=== PATIENT | male | born 1975 | race Caucasian/White ===

== ENCOUNTER 2019-10-26 09:16 | Emergency (ER) | payer SELFPAY ==
[2019-10-26 10:02] VITALS: BP 115/79; PULSE 78; RESP 16; TEMP 36.9; O2SAT 95; BMI 25.7
[2019-10-26 10:15] VITALS: BP 111/73; PULSE 73; RESP 20; O2SAT 95
--- NOTE | 2019-10-26 11:00 | HMH.EDDENT ---
ED Disposition Clinical Impression: Dental abscess Disposition: Home, Self-Care Condition on Discharge: Good Instructions: Tooth Abscess Prescriptions: clindamycin HCL [Clindamycin HCl 300mg Cap] 300 mg PO Q6 10 Days #40 cap Transmission Status: Pending to [facility] #[id number] Referrals: Gerard Morrissey [Primary Care Provider] - - Critical Care Critical Care Time: No Attestation: On 10/26/19, the high probability of a clinically significant, sudden or life threatening deterioration of the following system(s) required my full and direct attention, intervention and personal management. The time I documented below is in addition to time spent performing reported procedures but includes the following listed in this critical care notation. Medical Decision Making - Medical Records Medical records reviewed: Yes: I reviewed the patient's medical records. - Patric Inquiry Pt receiving controlled substance: No Vital Signs: 10/26/19 10:02 10/26/19 10:15 Temperature 98.5 F Temperature Source Oral Pulse Rate [Right Brachial] 78 73 Respiratory Rate 16 20 Blood Pressure [Right Arm] 115/79 111/73 Blood Pressure Mean [Right Arm] 91 85 Blood Pressure Source [Right Arm] Automatic Cuff Automatic Cuff Blood Pressure Position [Right Arm] Sitting Sitting 02 Sat by Pulse Oximetry 95 95 Oxygen Delivery Method Room Air Dental HPI - General Chief complaint: Dental/Oral Stated complaint: bleeding from right ear Time Seen by Provider: 10/26/19 11:00 Mode of Arrival: Ambulatory Source of Information: Patient Limitations: No Limitations Description of Symptoms (Recalled from ER Triage Doc. by RN): PT advises his right ear has been bleeding since last night. Denies any trauma or injury. Advises he has some bad teeth and has had some for a while and has a headache and thinks it is all related to his teeth - History of Present Illness MD Complaint: tooth pain Onset (ago): day(s) Duration: constant Severity: moderate Severity scale (1-10): 3 Relieving factors: nothing Exacerbating factors: nothing Context: history of dental caries Associated symptoms: gum swelling Treatment prior to arrival: none - Related Data Previous Rx's Medication Instructions Recorded clindamycin HCL [Clindamycin HCl 300 mg PO Q6 10 Days #40 cap 10/26/19 300mg Cap] Allergies Allergy/AdvReac Type Severity Reaction Status Date / Time Tetanus Vaccines and Toxoid Allergy Verified 01/20/18 23:18 [facility] History - Hepatitis A Screen Drug use history?: No High risk sexual behaviors?: No History of sexually transmitted infection?: No Currently employed?: No Childcare worker?: No Do you have indoor plumbing?: Yes Do you have electricity?: Yes Attestation statement:: This patient has been screened for Hepatitis A risk factors. Medical History: Denies:: Cancer, Diabetes Mellitus Type 1, Diabetes Mellitus Type 2, MRSA Amputation: No - Social History Smoking Status: Current every day smoker Tobacco Type: cigarettes # Packs/Day (cigarettes): 1 Alcohol Intake: current Alcohol Intake Frequency:: a few times a week Occupational Status: other Housing: house ROS Obtained: Yes All systems reviewed & no additional complaints - Constitutional Constitutional: Reports system reviewed and no additional complaints, except as docu - Eyes Eyes: Reports system reviewed and no additional complaints, except as docu - ENT Ears, Nose, Mouth, and Throat: Reports system reviewed and no additional complaints, except as docu - Cardiovascular Cardiovascular: Reports system reviewed and no additional complaints, except as docu - Respiratory Respiratory: Yes system reviewed and no additional complaints, except as docu - Gastrointestinal Gastrointestingal: Reports: system reviewed and no additional complaints, except as docu - Genitourinary Male Genitourinary: Reports system reviewed and no additional complaints, except a
[2019-10-26 11:19] VITALS: BP 111/73; PULSE 73; RESP 20; TEMP 36.9; O2SAT 95
== END 2019-10-26 11:19 | disposition home or self-care (01) ==
PROVIDERS: Emergency Provider Family Medicine; PCP Pediatrics
DX: K04.7 Periapical abscess without sinus (principal); K02.9 Dental caries, unspecified; Z88.7 Allergy status to serum and vaccine
CPT/HCPCS: 99282

== ENCOUNTER 2021-01-15 22:23 | Inpatient (IN) | payer OTHER, SELFPAY ==
[2021-01-15 22:25] VITALS: BP 113/85; PULSE 84; RESP 16; TEMP 36.8; O2SAT 93; BMI 17.2
[2021-01-15 22:50] LABS: Coronavirus 19, PCR Not Detected (NotDetected); Influenza A, PCR Not Detected (NotDetected); Influenza B, PCR Not Detected (NotDetected)
[2021-01-15 22:50] LABS: Microscopic, Urine URINE MICROSCOPIC (MICROSCOPIC)
[2021-01-15 22:51] LABS: Appearance,Urine SL CLOUDY (Clear); Bilirubin,Urine Negative (Negative); Blood, Urine TRACE-I (Negative); Color,Urine YELLOW (Yellow); Glucose,Urine (UA) Negative (Negative); Ketones,Urine Negative (Negative); Leukocyte Esterase,Urine Negative (Negative); Nitrate,Urine Negative (Negative); Protein,Urine Negative (Negative); Urobilinogen,Urine 0.2 EU/dl (0.2)
[2021-01-15 23:01] LABS: RBC,Urine Occasional #/hpf (0-3); Squamous Epithelial Cell,Urine Occasional #/hpf (0-5)
[2021-01-15 23:02] LABS: Basophils # 0.1 K/mm3 (0-0.2); Basophils % 1.2 % (0.1-2.0); Eosinophils # 0.1 K/mm3 (0.0-0.4); Eosinophils % 2.1 % (0.1-12.0); Hematocrit 46.3 % (42.0-52.0); Lymphocytes # 2.8 K/mm3 (0.7-4.5); Lymphocytes % 54.9 % (10-50); Mean Corpuscular HGB Conc 34.7 g/dL (31.8-35.4); Mean Corpuscular Hemoglobin 34.1 pg (27.0-31.2); Mean Corpuscular Volume 98.3 fl (80-94); Mean Platelet Volume 7.3 fl (7.4-10.4); Monocytes # 0.3 K/mm3 (0.1-1.0); Neutrophils # 1.8 K/mm3 (1.8-7.8); Neutrophils % 35.8 % (37.0-80.0); Platelet Count 240 K/mm3 (142-424); Red Blood Count 4.71 M/mm3 (4.60-6.20); Red Cell Distribution Width 14.4 % (11.5-17.5); White Blood Count 5.1 K/mm3 (4.8-10.8)
[2021-01-15 23:04] LABS: MANUAL DIFFERENTIAL MANUAL DIFFERENTIAL (MANUAL DIFF)
[2021-01-15 23:06] LABS: Chloride 103 mmol/L (98-107)
--- NOTE | 2021-01-15 23:06 | ECG_ITS ---
APPROVED REPORT Exam: Resting ECG HR:76 bpm ECG Measurements Heart Rate 76 AXES ND 200 P 80 QRSd 106 QRS 83 QT 394 T 63 QTc 443 Conclusion Normal sinus rhythm Normal ECG Electronically signed by : Willy Almanza MD 01/17/2021 17:37:17
[2021-01-15 23:07] LABS: Potassium 3.4 mmoL/L (3.5-5.1); Sodium 146 mmol/L (136-145)
[2021-01-15 23:09] LABS: Alanine Aminotransferase 48 U/L (12-78); Aspartate Amino Transferase 138 U/L (17-59); Creatinine Clearance Estimated 120 mL/min (50-200); Estimated Glomerular Filt Rate 146 ml/min (>60); GFR (African American) 176 ML/MIN (>60)
--- NOTE | 2021-01-15 23:09 | HMH.EDGENADL ---
ED Disposition Clinical Impression: Alcoholism Alcoholic pancreatitis Qualifiers: Chronicity: acute Acute pancreatitis complication: no infection or necrosis Qualified Code(s): K85.20 - Alcohol induced acute pancreatitis without necrosis or infection Alcohol intoxication Qualifiers: Complication of substance-induced condition: with unspecified complication Qualified Code(s): F10.929 - Alcohol use, unspecified with intoxication, unspecified Disposition: Admitted as Observation Condition on Discharge: Fair Referrals: Provider,Referral, [Primary Care Provider] - - Critical Care Critical Care Time: No Attestation: On 01/15/21, the high probability of a clinically significant, sudden or life threatening deterioration of the following system(s) required my full and direct attention, intervention and personal management. The time I documented below is in addition to time spent performing reported procedures but includes the following listed in this critical care notation. Medical Decision Making - Patric Inquiry Pt receiving controlled substance: No Vital Signs: 01/15/21 22:25 Temperature 98.2 F Temperature Source Oral Pulse Rate [Right] 84 Respiratory Rate 16 Blood Pressure [Right Arm] 113/85 Blood Pressure Mean [Right Arm] 94 02 Sat by Pulse Oximetry 93 L Oxygen Delivery Method Room Air - Lab Data Lab Results 01/15/21 22:40: SARS-CoV-2 (PCR) Not detected, Influenza A Untype (PCR) Not detected, Influenza Type B (PCR) Not detected 01/15/21 22:45: Urine Color Yellow, Urine Appearance Sl cloudy, Urine pH 6.0, Ur Specific [place] 1.010, Urine Protein Negative, Urine Glucose (UA) Negative, Urine Ketones Negative, Urine Blood Trace-i, Urine Nitrate Negative, Urine Bilirubin Negative, Urine Urobilinogen 0.2, Ur Leukocyte Esterase Negative, Urine RBC Occasional, Urine WBC None, Ur Squamous Epith Cells Occasional, Urine Bacteria None 01/15/21 22:45: Urine Opiates Screen Negative, Urine Methadone Screen Negative, Ur Barbituates Screen Negative, Ur Phencyclidine Scrn Negative, Ur Amphetamines Screen Negative, U Benzodiazepines Scrn Negative, Urine Cocaine Screen Negative, U Marijuana (THC) Screen Negative 01/15/21 22:52: WBC 5.1, RBC 4.71, Hgb 16.0, Hct 46.3, MCV 98.3 H, MCH 34.1 H, MCHC 34.7, RDW 14.4, Plt Count 240, MPV 7.3 L, Neut % (Auto) 35.8 L, Lymph % (Auto) 54.9 H, [place] % (Auto) 6.0, Eos % (Auto) 2.1, Baso % (Auto) 1.2, Neut # (Auto) 1.8, Lymph # (Auto) 2.8, [place] # (Auto) 0.3, Eos # (Auto) 0.1, Baso # (Auto) 0.1, Total Counted 100, Neutrophils % (Manual) 33 L, Lymphocytes % (Manual) 66 H, Monocytes % (Manual) 1 L, Platelet Estimate Normal, RBC Morphology Normal 01/15/21 22:52: Sodium 146 H, Potassium 3.4 L, Chloride 103, Carbon Dioxide 28, Anion Gap 18.4 H, BUN < 2 L, Creatinine 0.60 L, Estimated Creat Clear 120, Estimated GFR 146, Est GFR ( Amer) 176, Glucose 97, Calcium 8.4, Total Bilirubin 0.2, AST 138 H, ALT 48, Alkaline Phosphatase 151 H, Total Protein 7.2, Albumin 3.8, Globulin 3.4 H, Albumin/Globulin Ratio 1.1 01/15/21 22:52: Plasma/Serum Alcohol 490 H 01/15/21 22:52: Troponin I < 0.01 01/15/21 22:52: Lipase 1239 H 01/15/21 22:52: Magnesium 1.6 Result diagrams: 01/15/21 22:52 01/15/21 22:52 Orders (Tests/Meds): ED MEDICATIONS Generic Name Dose Route Start Last Admin Trade Name Freq PRN Reason Stop Dose Admin Multivitamins 10 ml/ Thiamine 1,015 mls @ 150 mls/hr 01/15/21 23:15 01/15/21 23:23 HCl 100 mg/ Magnesium Sulfate IV 01/16/21 06:00 150 mls/hr 2 gm/ Lactated Ringer's .[id number] ERWIN Administration Discontinued Medications Generic Name Dose Route Start Last Admin Trade Name Freq PRN Reason Stop Dose Admin Ondansetron HCl 4 mg 01/15/21 23:06 01/15/21 23:31 Ondansetron 4mg/2ml Vial IV 01/15/21 23:07 4 mg ONCE ONE Administration ORDERS Category Date Time Status Diarrhea 6-11 Panel, Cdiff PCR Stat Lab 01/15/21 23:10 Ordered Troponin I Q3H Lab 01/16/21 02:15 [place]
[2021-01-15 23:10] LABS: Albumin Level 3.8 g/dl (3.5-5.0); Albumin/Globulin Ratio 1.1 (1.1-1.8); Alkaline Phosphatase 151 U/L (38-126); Anion Gap 18.4 mEq/L (5-15); Bilirubin,Total 0.2 mg/dl (0.2-1.3); Blood Urea Nitrogen < 2 mg/dl (9-20); Calcium 8.4 mg/dl (8.4-10.2); Carbon Dioxide 28 mmol/L (22.0-30.0); Globulin 3.4 g/dL (1.3-3.2); Glucose 97 mg/dl (74-100); Total Protein,Serum 7.2 g/dl (6.3-8.2)
[2021-01-15 23:22] LABS: Ethyl Alcohol 490 mg/dl (0-10)
[2021-01-15 23:24] LABS: Magnesium 1.6 mg/dl (1.6-2.3)
[2021-01-15 23:28] LABS: Barbiturates Screen,Urine Negative ng/ml (<200); Benzodiazepines Screen,Urine Negative ng/ml (<200)
[2021-01-15 23:29] LABS: Amphetamine/Metha Screen,Urine Negative ng/ml (<1000)
[2021-01-15 23:30] LABS: Cannabinoid Screen,Urine Negative ng/ml (<50); Cocaine Screen,Urine Negative ng/ml (<300)
[2021-01-15 23:31] LABS: Methadone Screen,Urine Negative ng/ml (<300); Opiate Screen,Urine Negative ng/ml (<300)
[2021-01-15 23:32] LABS: Phencyclidine Screen,Urine Negative ng/ml (<25)
[2021-01-15 23:33] LABS: Lymphocytes % 66 % (10-50); Monocytes % 1 % (2-9); Neutrophils % 33 % (42-76); Platelet Estimate Normal; RBC Morphology Normal; Total Cells Counted 100
[2021-01-15 23:35] LABS: Lipase 1239 U/L (23-300)
[2021-01-15 23:37] LABS: Troponin I < 0.01 ng/ml (0.00-0.034)
--- NOTE | 2021-01-16 00:25 | XR_ITS ---
PROCEDURE INFORMATION: Exam: XR Chest Exam date and time: 01/16/2021 12:25 AM Age: 45 years old Clinical indication: Cough and other: Weakness TECHNIQUE: Imaging protocol: XR of the chest. Views: 2 views. COMPARISON: CR XR CHEST 2V 02/24/2019 8:59 AM FINDINGS: Lungs: No focal consolidation. Pleural spaces: No pleural effusion. No pneumothorax. Heart/Mediastinum: Unremarkable cardiomediastinal silhouette. Bones/joints: No acute osseous findings. Metallic hardware in the right clavicle. IMPRESSION: No focal consolidation.
--- NOTE | 2021-01-16 00:28 | CT_ITS ---
PROCEDURE INFORMATION: Exam: CT Abdomen And Pelvis With Contrast Exam date and time: 01/16/2021 12:28 AM Age: 45 years old Clinical indication: Nausea and vomiting; Additional info: Abdo pain, back pain, vomiting TECHNIQUE: Imaging protocol: Computed tomography of the abdomen and pelvis with contrast. Radiation optimization: All CT scans at this facility use at least one of these dose optimization techniques: automated exposure control; mA and/or kV adjustment per patient size (includes targeted exams where dose is matched to clinical indication); or iterative reconstruction. Contrast material: ISOVUE; Contrast volume: 75 ml; Contrast route: IV; COMPARISON: CR XR CHEST 2V 02/24/2019 8:59 AM FINDINGS: Lungs: No bibasilar consolidation. Liver: Hepatic steatosis. Gallbladder and bile ducts: No calcified stones. No ductal dilation. Pancreas: No ductal dilation. No peripancreatic inflammatory changes. Spleen: Unremarkable. Adrenal glands: No mass. Kidneys and ureters: Small cyst in the right kidney. No hydronephrosis. Stomach and bowel: Nonobstructive bowel gas pattern. Appendix: No evidence of appendicitis. Intraperitoneal space: No free air. No ascites. Vasculature: Vascular calcifications. Lymph nodes: No enlarged lymph nodes. Urinary bladder: Relatively mild diffuse urinary bladder wall thickening, cystitis is possible. Reproductive: Unremarkable as visualized. Bones/joints: No suspicious osseous lesion. No acute fracture. Scattered degenerative changes. Soft tissues: No suspicious mass. IMPRESSION: 1. Relatively mild diffuse urinary bladder wall thickening, cystitis is possible. 2. Nonobstructive bowel gas pattern. COMMENTS: Consistent with the [employer]'s Incidental Findings Committee white paper (J Am Taj Radiol 2018): Any incidental renal lesion less than 1 cm or classified as too small to characterize, or any incidental cystic renal lesion characterized as simple-appearing, is likely benign. No follow-up imaging is recommended for these lesions per consensus recommendations based on imaging criteria.
[2021-01-16 02:27] VITALS: BP 119/73; PULSE 66; RESP 17; TEMP 36.4; O2SAT 97; BMI 25.1
[2021-01-16 02:28] VITALS: BP 121/74; PULSE 81; RESP 16; TEMP 36.8; O2SAT 94
[2021-01-16 02:45] LABS: Activated Partial Thrombo Time 27.1 seconds (22.8-30.6); Prothrombin Time 9.8 seconds (10.1-12.5)
[2021-01-16 02:47] LABS: INR 0.82 (0.9-1.1)
--- NOTE | 2021-01-16 02:49 | PC.NURSE ---
patient up to floor via wheelchair
[2021-01-16 02:58] LABS: Phosphorous 4.1 mg/dl (2.5-4.5)
[2021-01-16 02:59] LABS: Troponin I < 0.01 ng/ml (0.00-0.034)
[2021-01-16 03:00] LABS: Lipase 919 U/L (23-300)
--- NOTE | 2021-01-16 07:18 | P.CONPHA_ITS ---
[facility] Pharmacy VTE Monitoring - Patient Demographics Admission date: 01/15/21 Report Date: 01/16/21 Time: 07:18 Allergies/Adverse Reactions: Patient Allergies Tetanus Vaccines and Toxoid Allergy (Verified 01/20/18 23:18) Height: 1.8 m Weight: 81.647 kg Patient Problems: Current Active Problems Alcoholic pancreatitis (Acute) Alcohol intoxication (Acute) Alcoholism (Acute) - VTE Risk Labs: VTE Related Lab Results Hgb 16.0 g/dL (14.1-18.0) 01/15/21 22:52 Hct 46.3 % (42.0-52.0) 01/15/21 22:52 Plt Count 240 K/mm3 (142-424) 01/15/21 22:52 PT 9.8 seconds (10.1-12.5) L 01/15/21 22:52 INR 0.82 (0.9-1.1) L 01/15/21 22:52 APTT 27.1 seconds (22.8-30.6) 01/15/21 22:52 BUN < 2 mg/dl (9-20) L 01/15/21 22:52 Creatinine 0.60 mg/dl (0.66-1.25) L 01/15/21 22:52 Estimated Creat Clear 120 mL/min (50-200) 01/15/21 22:52 Was VTE Risk Assessment Performed: Yes VTE Score: 1 VTE Risk Level: Very Low Risk - Prophylaxis VTE Prophylaxis Ordered?: Yes Types of VTE Prophylaxis: TEDS Knee High Location of Applied Device: Bilateral Lower Extremeties
[2021-01-16 08:00] VITALS: BP 125/86; PULSE 94; RESP 16; TEMP 37.1; O2SAT 96
--- NOTE | 2021-01-16 09:10 | SW/DCPLANNER ---
Addendum entered by Yenni Maldonado 01/19/21 09:43: I have updated Sofi with [facility] regarding this patient and faxed updates. Sofi is currently speaking with this patient via phone and understands that patient is medically stable for discharge today. Addendum entered by Yenni Maldonado 01/17/21 13:24: I have notified Sofi with [facility] that this patient is not medically stable for discharge today. CM will follow up with [facility] tomorrow. Addendum entered by Yenni Maldonado 01/17/21 09:18: This patient is now agreeable to discharge to [facility]. Patient stated that he spoke with his Radio Assembler yesterday and stated that was his only option. I spoke with Sofi at [facility] and faxed patient information. I will follow up with Sofi once patient information is reviewed. [facility] phone [phone] fax [phone] Original Note: I spoke with this patient this morning during rounds regarding alcohol detox programs. During rounds patient expressed an interest in discharging to a 30 day program and stated that his Radio Assembler has contacted him and he will have to do a program. After rounds I spoke with patient and he stated that he is going home at time of discharge but would be interested in contact information to [facility] in [place]. I have printed out information for [facility] for this patient. Patient will discharge home this afternoon.
--- NOTE | 2021-01-16 13:54 | HMH.HPDC ---
General - General Admission date:: 01/16/21 Discharge date: 01/16/21 *Admission Date: 01/15/21 *Chief complaint: abd pain *History of present illness: this patient presented to the ed -ates he has not felt well for 2 weeks. He says his kidneys are hurting, he has been vomiting, bad diarrhea, he has infraumbilical midline pain, he is coughing and thinks he has pneumonia, he thinks he is dehydrated. Admits to daily alcohol intake, a pint today. Denies drug use. He is a smoker. He does not have a primary care provider. He is on no prescription medications. pt was found to have elevated etoh level and acute assoc pancreatitis but neg ct abd/pelvis - pt with dec po intake and was admitted for ivf and meds and bowel rest [facility] History I have reviewed the patient's past medical history: Yes Medical History: Reports:: Heart Murmur Denies:: Cancer, Diabetes Mellitus Type 1, Diabetes Mellitus Type 2, Internal Pacemaker, MRSA *Have you ever received a pneumonia vaccine?: No *Have you received a flu vaccine this season?: No Laterality Cases: Right: Arthroscopy Shoulder Other Surgeries: No: Pacemaker Amputation: No Fractures: No - *Social History Last grade of school completed: 11th or 12th Smoking Status: Current every day smoker Tobacco Type: cigarettes # Packs/Day (cigarettes): 1 Alcohol Intake: current Alcohol Intake Frequency:: 3 or more drinks per day *Occupational Status:: unemployed Housing: house Household Members: significant other, children *Travel in the last 8 weeks: None Family Hx:: No significant family history Review of Systems - Review of Systems Review of systems:: pertinent systems reviewed and negative unless documented below - Constitutional Denies fever(s) - Eyes Denies change in vision - ENT Denies sore throat - *Cardiovascular Denies chest pain - *Respiratory Denies cough - *Gastrointestinal Reports abdominal pain, Reports nausea, Reports vomiting, Denies black, tarry stools - *Genitourinary Denies blood in urine - *Musculoskeletal Denies joint pain, Denies joint swelling - Integumentary/Breasts Denies rash - *Neurologic Denies dizziness, Denies headache(s), Denies seizure-like activity - Psychiatric Reports anxiety Exam Vital signs and Labs for Last 24 Hours: Temp Pulse Resp BP Pulse Ox 98.8 F 94 H 16 125/86 96 01/16/21 08:00 01/16/21 08:00 01/16/21 08:00 01/16/21 08:00 01/16/21 08:00 Laboratory Results - last 24 hr 01/15/21 22:40: SARS-CoV-2 (PCR) Not detected, Influenza A Untype (PCR) Not detected, Influenza Type B (PCR) Not detected 01/15/21 22:45: Urine Color Yellow, Urine Appearance Sl cloudy, Urine pH 6.0, Ur Specific [place] 1.010, Urine Protein Negative, Urine Glucose (UA) Negative, Urine Ketones Negative, Urine Blood Trace-i, Urine Nitrate Negative, Urine Bilirubin Negative, Urine Urobilinogen 0.2, Ur Leukocyte Esterase Negative, Urine RBC Occasional, Urine WBC None, Ur Squamous Epith Cells Occasional, Urine Bacteria None 01/15/21 22:45: Urine Opiates Screen Negative, Urine Methadone Screen Negative, Ur Barbituates Screen Negative, Ur Phencyclidine Scrn Negative, Ur Amphetamines Screen Negative, U Benzodiazepines Scrn Negative, Urine Cocaine Screen Negative, U Marijuana (THC) Screen Negative 01/15/21 22:52: WBC 5.1, RBC 4.71, Hgb 16.0, Hct 46.3, MCV 98.3 H, MCH 34.1 H, MCHC 34.7, RDW 14.4, Plt Count 240, MPV 7.3 L, Neut % (Auto) 35.8 L, Lymph % (Auto) 54.9 H, [place] % (Auto) 6.0, Eos % (Auto) 2.1, Baso % (Auto) 1.2, Neut # (Auto) 1.8, Lymph # (Auto) 2.8, [place] # (Auto) 0.3, Eos # (Auto) 0.1, Baso # (Auto) 0.1, Total Counted 100, Neutrophils % (Manual) 33 L, Lymphocytes % (Manual) 66 H, Monocytes % (Manual) 1 L, Platelet Estimate Normal, RBC Morphology Normal 01/15/21 22:52: Sodium 146 H, Potassium 3.4 L, Chloride 103, Carbon Dioxide 28, Anion Gap 18.4 H, BUN < 2 L, Creatinine 0.60 L, Estimated Creat Clear 120, Estimated GFR 146, Est GFR ( Amer) 176, Gl
--- NOTE | 2021-01-16 15:51 | HMH.PHAINT ---
MEDICATION DISCHARGE COUNSELING COMPLETED. NO QUESTIONS ENDORSED.
[2021-01-16 16:00] VITALS: BP 148/92; PULSE 85; RESP 22; TEMP 36.6; O2SAT 98
[2021-01-16 16:38] LABS: Basophils # 0.1 K/mm3 (0-0.2); Basophils % 1.5 % (0.1-2.0); Eosinophils % 0.8 % (0.1-12.0); Hematocrit 40.9 % (42.0-52.0); Lymphocytes # 1.1 K/mm3 (0.7-4.5); Lymphocytes % 24.9 % (10-50); Mean Corpuscular HGB Conc 33.4 g/dL (31.8-35.4); Mean Corpuscular Hemoglobin 32.8 pg (27.0-31.2); Mean Corpuscular Volume 98.3 fl (80-94); Mean Platelet Volume 8.5 fl (7.4-10.4); Monocytes # 0.4 K/mm3 (0.1-1.0); Monocytes % 8.8 % (1.7-9.3); Neutrophils # 2.8 K/mm3 (1.8-7.8); Platelet Count 245 K/mm3 (142-424); Red Blood Count 4.16 M/mm3 (4.60-6.20); Red Cell Distribution Width 14.7 % (11.5-17.5); White Blood Count 4.4 K/mm3 (4.8-10.8)
[2021-01-16 16:47] LABS: Chloride 96 mmol/L (98-107)
[2021-01-16 16:48] LABS: Sodium 136 mmol/L (136-145)
[2021-01-16 16:50] LABS: Alanine Aminotransferase 45 U/L (12-78); Alkaline Phosphatase 146 U/L (38-126); Aspartate Amino Transferase 123 U/L (17-59); Bilirubin,Total 0.4 mg/dl (0.2-1.3); Carbon Dioxide 26 mmol/L (22.0-30.0); Creatinine Clearance Estimated 215 mL/min (50-200); Estimated Glomerular Filt Rate 180 ml/min (>60); GFR (African American) 218 ML/MIN (>60)
[2021-01-16 16:51] LABS: Albumin Level 3.6 g/dl (3.5-5.0); Albumin/Globulin Ratio 1.2 (1.1-1.8); Calcium 8.1 mg/dl (8.4-10.2); Glucose 109 mg/dl (74-100); Total Protein,Serum 6.6 g/dl (6.3-8.2)
[2021-01-16 17:43] LABS: Blood Urea Nitrogen < 2 mg/dl (9-20)
[2021-01-16 17:44] LABS: Lipase 662 U/L (23-300)
[2021-01-16 20:00] VITALS: BP 160/102; PULSE 95; RESP 16; TEMP 36.6; O2SAT 97
--- NOTE | 2021-01-16 20:45 | PC.NURSE ---
This RN called Dr. Martin senior telecommunications engineer in [place] to pt's critical K and lipase. Dr. Martin ordered 2 runs of K 20 meq and NS @ 125. He also reviewed meds for the etoh protocol. Pt this afternoon started to become very nauseated and anxious and in pain. Meds given per jun. Dr. Putnam made aware this shift earlier of pt's worsening status and did cancel pt's d/c. CB in reach and family has been at bedside.
[2021-01-16 20:54] LABS: Hemoglobin 13.6 g/dL (14.1-18.0)
[2021-01-17] VITALS: BP 128/88
[2021-01-17 04:00] VITALS: BP 131/85; PULSE 81; RESP 16; TEMP 36.9; O2SAT 97
--- NOTE | 2021-01-17 05:00 | PC.NURSE ---
PT HAS SLEPT OFF AND ON TONIGHT,CWIA SCORE OF 7 THIS MORNING,ZOFRAN 4 MG IVP GIVEN FOR A LITTLE NAUSEA,MORPHINE HAS BEEN GIVEN X2,PT HAD A COUPLE RUNS OF KCL TONIGHT.V/S STABLEE WILL CONTINE TO MONITOR
[2021-01-17 05:52] VITALS: BMI 21.6
[2021-01-17 07:11] LABS: Basophils % 0.3 % (0.1-2.0); Eosinophils # 0.1 K/mm3 (0.0-0.4); Eosinophils % 0.9 % (0.1-12.0); Hematocrit 37.8 % (42.0-52.0); Hemoglobin 12.7 g/dL (14.1-18.0); Lymphocytes % 18.2 % (10-50); Mean Corpuscular HGB Conc 33.5 g/dL (31.8-35.4); Mean Corpuscular Hemoglobin 32.9 pg (27.0-31.2); Mean Corpuscular Volume 98.3 fl (80-94); Mean Platelet Volume 8.5 fl (7.4-10.4); Monocytes # 0.2 K/mm3 (0.1-1.0); Monocytes % 3.4 % (1.7-9.3); Neutrophils # 4.3 K/mm3 (1.8-7.8); Neutrophils % 77.2 % (37.0-80.0); Platelet Count 201 K/mm3 (142-424); Red Blood Count 3.84 M/mm3 (4.60-6.20); Red Cell Distribution Width 14.6 % (11.5-17.5); White Blood Count 5.6 K/mm3 (4.8-10.8)
[2021-01-17 07:13] LABS: Anion Gap 7.3 mEq/L (5-15); Blood Urea Nitrogen 3 mg/dl (9-20); Calcium 7.5 mg/dl (8.4-10.2); Carbon Dioxide 30 mmol/L (22.0-30.0); Chloride 97 mmol/L (98-107); Creatinine Clearance Estimated 185 mL/min (50-200); Estimated Glomerular Filt Rate 180 ml/min (>60); GFR (African American) 218 ML/MIN (>60); Glucose 82 mg/dl (74-100); Potassium 3.3 mmoL/L (3.5-5.1); Sodium 131 mmol/L (136-145)
[2021-01-17 07:57] LABS: Lipase 671 U/L (23-300)
[2021-01-17 08:00] VITALS: BP 120/74; PULSE 84; RESP 16; TEMP 37.2; O2SAT 95
--- NOTE | 2021-01-17 09:36 | PC.NURSE ---
0830: Dr. Putnam notified of Lipase of 671.
[2021-01-17 12:08] LABS: Adenovirus F 40/41, stool Not Detected (NotDetected); Astrovirus Not Detected (NotDetected); Campylobacter Not Detected (NotDetected); Cryptosporidium Not Detected (NotDetected); Cyclospora Cayetanesis Not Detected (NotDetected); Entamoeba histolytica Not Detected (NotDetected); Enteroaggregative E coli Not Detected (NotDetected); Enteropathogenic E coli Not Detected (NotDetected); Enterotoxigenic E coli Not Detected (NotDetected); Giardia lamblia Not Detected (NotDetected); Norovirus Not Detected (NotDetected); Plesimonas Shigalloides, PCR Not Detected (NotDetected); Rotavirus A Not Detected (NotDetected); Salmonella, PCR Not Detected (NotDetected); Sapovirus Not Detected (NotDetected); Shiga-like toxin E coli Not Detected (NotDetected); Shigella Enterovasive E coli Not Detected (NotDetected); Vibrio Cholerae Not Detected (NotDetected); Vibrio, PCR Not Detected (NotDetected); Yersinia Entercolitica, PCR Not Detected (NotDetected)
[2021-01-17 12:37] LABS: Lipase 888 U/L (23-300)
[2021-01-17 15:05] LABS: Clostridium Difficile A/B, PCR Detected (NotDetected)
--- NOTE | 2021-01-17 15:20 | PC.NURSE ---
Telephone report to Dr. Barakat regarding pt. elevated Lipase (888) and diarrhea panel result of C.Diff. New orders for IV Flagyl and to make pt. NPO.
[2021-01-17 16:00] VITALS: BP 165/92; PULSE 81; RESP 18; TEMP 36.9; O2SAT 98
[2021-01-17 20:00] VITALS: BP 135/84; PULSE 80; RESP 18; TEMP 37.1; O2SAT 96
--- NOTE | 2021-01-17 20:40 | HMH.ACPN2 ---
Internal Medicine - PN: Subj *Date: 01/17/21 *Time: 08:40 Interval history: 45-year-old male patient sitting up in bed, girlfriend in room. Patient was to be discharged yesterday after labs were drawn he did have a low potassium which was replaced and an elevated lipase, normal saline was started at 125 an hour. This morning he reports multiple bowel movements and emesis during the night, reports abdomen is still slightly tender. Discussed possible discharge home today with him and then to start her Taney, he is agreeable to this we will draw lipase at noon and advance diet to see how tolerated at lunch. Exam Vital signs and Labs for Last 24 Hours: Temp Pulse Resp BP Pulse Ox 98.4 F 81 18 165/92 H 98 01/17/21 16:00 01/17/21 16:00 01/17/21 16:00 01/17/21 16:00 01/17/21 16:00 Laboratory Results - last 24 hr 01/15/21 11:57: Stl Aeromonas (PCR) Not detected, Stl C. cayetanensis PCR Not detected, Stool Rotavirus (PCR) Not detected, Stl Adenov F 40/41 PCR Not detected, Stool Astrovirus (PCR) Not detected, Stool Campylobacter PCR Not detected, Stl C.difficile Tox PCR Detected A, Stool Cryptosporidium PCR Not detected, Stl E.coli Shiga Tox PCR Not detected, Stool E coli O157 PCR Not detected, Stl Enterotoxigenic E PCR Not detected, Stool EPEC (PCR) Not detected, Stool EAEC (PCR) Not detected, Stl E. histolytica PCR Not detected, Stool Giardia Lamblia PCR Not detected, Stool Salmonella PCR Not detected, Stool Sapovirus (PCR) Not detected, Stl P. shigelloides PCR Not detected, Stl Shigella/EIEC PCR Not detected, St Y.enterocolitica PCR Not detected, Stool Vibrio (PCR) Not detected, Stl Vibrio cholerae PCR Not detected, Stl Norovirus GI/GII PCR Not detected 01/16/21 16:30: Hgb 13.6 L D 01/17/21 06:24: WBC 5.6 D, RBC 3.84 L, Hgb 12.7 L, Hct 37.8 L, MCV 98.3 H, MCH 32.9 H, MCHC 33.5, RDW 14.6, Plt Count 201, MPV 8.5, Neut % (Auto) 77.2, Lymph % (Auto) 18.2, [place] % (Auto) 3.4, Eos % (Auto) 0.9, Baso % (Auto) 0.3, Neut # (Auto) 4.3, Lymph # (Auto) 1.0, [place] # (Auto) 0.2, Eos # (Auto) 0.1, Baso # (Auto) 0.0 01/17/21 06:24: Sodium 131 L, Potassium 3.3 L, Chloride 97 L, Carbon Dioxide 30, Anion Gap 7.3, BUN 3 L D, Creatinine 0.50 L, Estimated Creat Clear 185, Estimated GFR 180, Est GFR ( Amer) 218, Glucose 82 D, Calcium 7.5 L, Lipase 671 H 01/17/21 12:16: Lipase 888 H I & O for Last 24 hours: Intake & Output 01/14/21 01/15/21 01/16/21 01/17/21 23:59 23:59 23:59 23:59 Intake Total 720 / 720 240 / 240 Output Total 975 / 975 Balance 720 / 320 -735 / -735 Weight 120 lb 180 lb 154 lb 4 oz - Constitutional no acute distress, chronically ill appearing - *Routine HEENT Exam Head: Present: normocephalic Eye: Present: EOMI ENT: Present: mucous membranes moist - *Routine Neck Exam Present: trachea midline. Absent: tracheal deviation - *Routine Respiratory Exam Present: decreased breath sounds. Absent: accessory muscle use - *Routine Cardiovascular Exam Present: RRR - *Routine Abdominal Exam Present: soft, normoactive bowel sounds, tenderness. Absent: rigid - *Routine Extremities Exam Present: full ROM, pulses intact. Absent: cyanosis, clubbing - *Routine Skin Exam Present: intact, dry, warm. Absent: cyanosis, erythema - *Routine Neurological Exam Present: alert, oriented X3. Absent: motor deficit - Routine Psychiatric Exam Present: normal affect, normal thought process. Absent: auditory hallucinations, visual hallucinations Assessment and Plan (1) Tobacco use Status: Acute Category: Social Hx Code(s): Z72.0 - Tobacco use (2) Alcohol intoxication Status: Acute Qualifiers: Complication of substance-induced condition: with unspecified complication Qualified Code(s): F10.929 - Alcohol use, unspecified with intoxication, unspecified Category: Medical Code(s): F10.929 - Alcohol use, unspecified with intoxication, unspecified (3) Alcoholic pancreatitis Status: Acute Qual
--- NOTE | 2021-01-18 03:54 | PC.NURSE ---
A&OX4. PT TOLERATING RA WELL. HAS HAD NO C/O THUS FAR THIS SHIFT. CIWAS BEING DONE PER PROTOCOL. HAVE NOT BEEN ABOVE 12 THIS SHIFT. PT HAS BEEN UP MAJORITY OF SHIFT. VSS WILL CONTINUE TO MONITOR.
[2021-01-18 04:00] VITALS: BP 143/99; PULSE 79; RESP 18; TEMP 37.2; O2SAT 97
[2021-01-18 06:54] VITALS: BMI 20.9
--- NOTE | 2021-01-18 06:55 | PC.NURSE ---
ASSIGNMENT ACCEPTED UNDER DURESS.
[2021-01-18 06:59] LABS: Basophils % 0.6 % (0.1-2.0); Eosinophils # 0.1 K/mm3 (0.0-0.4); Eosinophils % 1.6 % (0.1-12.0); Hematocrit 41.8 % (42.0-52.0); Hemoglobin 13.7 g/dL (14.1-18.0); Lymphocytes # 1.6 K/mm3 (0.7-4.5); Lymphocytes % 27.3 % (10-50); Mean Corpuscular HGB Conc 32.7 g/dL (31.8-35.4); Mean Corpuscular Volume 100.9 fl (80-94); Mean Platelet Volume 9.4 fl (7.4-10.4); Monocytes # 0.4 K/mm3 (0.1-1.0); Monocytes % 7.3 % (1.7-9.3); Neutrophils # 3.6 K/mm3 (1.8-7.8); Neutrophils % 63.2 % (37.0-80.0); Platelet Count 222 K/mm3 (142-424); Red Blood Count 4.14 M/mm3 (4.60-6.20); Red Cell Distribution Width 14.6 % (11.5-17.5); White Blood Count 5.7 K/mm3 (4.8-10.8)
[2021-01-18 07:09] LABS: Anion Gap 17.2 mEq/L (5-15); Blood Urea Nitrogen 3 mg/dl (9-20); Calcium 8.5 mg/dl (8.4-10.2); Carbon Dioxide 24 mmol/L (22.0-30.0); Chloride 101 mmol/L (98-107); Creatinine Clearance Estimated 149 mL/min (50-200); Estimated Glomerular Filt Rate 146 ml/min (>60); GFR (African American) 176 ML/MIN (>60); Glucose 74 mg/dl (74-100); Potassium 3.2 mmoL/L (3.5-5.1); Sodium 139 mmol/L (136-145)
[2021-01-18 07:57] LABS: Lipase 634 U/L (23-300)
[2021-01-18 08:00] VITALS: BP 152/97; PULSE 92; RESP 22; TEMP 36.9; O2SAT 98
--- NOTE | 2021-01-18 09:35 | CT_ITS ---
PROCEDURE: CT ABDOMEN PELVIS WO CON CLINICAL INDICATION: Abd Pain COMPARISON: CT ABDPELW CT ABD PELVIS W/ CONTRAST from 12/16/[address] ABDOMEN PELVIS W CON from 01/16/2021 TECHNIQUE: Axial images obtained with sagittal and coronal reformats. All CT scans at the facility use one or more dose reduction, viz: automated exposure control, ma/kV adjustment per patient size (including targeted exams where dose is matched to indication, i.e. head), or iterative reconstruction technique. FINDINGS: LOWER THORAX: There is a diffuse micronodular pattern involving the lung bases which is similar compared to 01/16/2021. No pleural effusion ABDOMEN & PELVIS: There is mild fatty liver infiltration. No focal liver lesion apparent. The spleen and adrenal glands are unremarkable. No obvious pancreatic mass. No evidence of pancreatitis. The gallbladder is contracted. Unremarkable appearing adrenal glands. No renal or ureteral calculi. There is a slightly hyperdense nodule projecting off the lower pole of the right kidney anteriorly at 11 mm. This nodule is hyperdense measuring 47 Hounsfield units making this an indeterminate nodule. There are few scattered small retroperitoneal lymph nodes. No intestinal obstruction or free air. No evidence of appendicitis. There is mild gaseous distention of the colon. Multiple unopacified bowel loops in the abdomen or pelvis which could obscure or mimic pathology. If symptoms persist, consider repeat exam with IV and oral contrast. There is mild thickening of the urinary bladder wall. No pelvic mass or abnormal fluid collection. Prostate is slightly prominent at 4.3 cm. There is grade 1 spondylitic spondylolisthesis of L5 on S1. IMPRESSION: Miliary opacities in the mid and lower lung zones bilaterally. This can be seen with infection such as tuberculosis, fungal infection, viral pneumonitis, miliary metastasis, sarcoidosis and pneumoconiosis. Please correlate with clinical parameters. Indeterminate 11 mm hyperdense nodule of the right kidney. Initially ultrasound may be of further value to determine if this is cystic or solid if ultrasound is inconclusive then MRI may be needed. Dictated by: Abdulaziz Hannon MD 01/18/2021 14:14 Abdulaziz Hannon MD in [facility] 01/18/2021 14:14
--- NOTE | 2021-01-18 09:36 | HMH.ACPN2 ---
Internal Medicine - PN: Subj *Date: 01/18/21 *Time: 15:14 Interval history: 45-year-old male patient up walking in room, girlfriend and mother in room also. He reports he is feeling better he did have one loose bowel movement last night about 1 AM. Denies any nausea reports tolerating liquids without any difficulty. Lipase this morning 634 we will recheck at noon and CT abdomen pelvis again. Exam Vital signs and Labs for Last 24 Hours: Temp Pulse Resp BP Pulse Ox 98.4 F 92 H 22 152/97 H 98 01/18/21 08:00 01/18/21 08:00 01/18/21 08:00 01/18/21 08:00 01/18/21 08:00 Laboratory Results - last 24 hr 01/15/21 11:57: Stl Aeromonas (PCR) Not detected, Stl C. cayetanensis PCR Not detected, Stool Rotavirus (PCR) Not detected, Stl Adenov F 40/41 PCR Not detected, Stool Astrovirus (PCR) Not detected, Stool Campylobacter PCR Not detected, Stl C.difficile Tox PCR Detected A, Stool Cryptosporidium PCR Not detected, Stl E.coli Shiga Tox PCR Not detected, Stool E coli O157 PCR Not detected, Stl Enterotoxigenic E PCR Not detected, Stool EPEC (PCR) Not detected, Stool EAEC (PCR) Not detected, Stl E. histolytica PCR Not detected, Stool Giardia Lamblia PCR Not detected, Stool Salmonella PCR Not detected, Stool Sapovirus (PCR) Not detected, Stl P. shigelloides PCR Not detected, Stl Shigella/EIEC PCR Not detected, St Y.enterocolitica PCR Not detected, Stool Vibrio (PCR) Not detected, Stl Vibrio cholerae PCR Not detected, Stl Norovirus GI/GII PCR Not detected 01/17/21 12:16: Lipase 888 H 01/18/21 06:41: WBC 5.7, RBC 4.14 L, Hgb 13.7 L, Hct 41.8 L, MCV 100.9 H, MCH 33.0 H, MCHC 32.7, RDW 14.6, Plt Count 222, MPV 9.4, Neut % (Auto) 63.2, Lymph % (Auto) 27.3, Grainger % (Auto) 7.3, Eos % (Auto) 1.6, Baso % (Auto) 0.6, Neut # (Auto) 3.6, Lymph # (Auto) 1.6, Grainger # (Auto) 0.4, Eos # (Auto) 0.1, Baso # (Auto) 0.0 01/18/21 06:41: Sodium 139, Potassium 3.2 L, Chloride 101, Carbon Dioxide 24, Anion Gap 17.2 H, BUN 3 L, Creatinine 0.60 L, Estimated Creat Clear 149, Estimated GFR 146, Est GFR ( Amer) 176, Glucose 74, Calcium 8.5, Lipase 634 H I & O for Last 24 hours: Intake & Output 01/15/21 01/16/21 01/17/21 01/18/21 23:59 23:59 23:59 23:59 Intake Total 720 / 720 240 / 240 120 / 120 Output Total 975 / 975 Balance 720 / 320 -735 / -735 120 / 120 Weight 120 lb 180 lb 154 lb 4 oz 149 lb 4 oz - Constitutional no acute distress, chronically ill appearing - *Routine HEENT Exam Head: Present: normocephalic Eye: Present: EOMI ENT: Present: mucous membranes moist - *Routine Neck Exam Present: full ROM, trachea midline. Absent: tracheal deviation - *Routine Respiratory Exam Present: CTA bilaterally. Absent: accessory muscle use - *Routine Cardiovascular Exam Present: RRR - *Routine Abdominal Exam Present: soft, normoactive bowel sounds, tenderness. Absent: firm - *Routine Extremities Exam Present: full ROM, pulses intact. Absent: cyanosis, clubbing, edema - *Routine Skin Exam Present: intact, dry, warm. Absent: cyanosis, erythema - *Routine Neurological Exam Present: alert, oriented X3. Absent: altered mental status - Routine Psychiatric Exam Present: normal affect, normal thought process. Absent: auditory hallucinations Assessment and Plan (1) Tobacco use Status: Acute Category: Social Hx Code(s): Z72.0 - Tobacco use (2) Alcohol intoxication Status: Acute Qualifiers: Complication of substance-induced condition: with unspecified complication Qualified Code(s): F10.929 - Alcohol use, unspecified with intoxication, unspecified Category: Medical Code(s): F10.929 - Alcohol use, unspecified with intoxication, unspecified (3) Alcoholic pancreatitis Status: Acute Qualifiers: Chronicity: acute Acute pancreatitis complication: no infection or necrosis Qualified Code(s): K85.20 - Alcohol induced acute pancreatitis without necrosis or infection Category: Medical Code(s): K85.20 - [place]
[2021-01-18 13:10] LABS: Lipase 720 U/L (23-300)
[2021-01-18 16:00] VITALS: BP 148/96; PULSE 102; RESP 22; TEMP 36.9; O2SAT 96
--- NOTE | 2021-01-18 18:50 | PC.NURSE ---
VSS, pt ambulating to and from bathroom independently, pt tolerating liquids and solid food at this time, informed pt that per MD Garcia as long as can tolerate diet and am labs look okay pt can be discharged in am.
[2021-01-18 20:00] VITALS: BP 154/94; PULSE 105; RESP 22; TEMP 37.2; O2SAT 97
[2021-01-18 23:30] LABS: Lipase 768 U/L (23-300)
--- NOTE | 2021-01-18 23:35 | PC.NURSE ---
critical lipase reported to Doc RN
--- NOTE | 2021-01-18 23:36 | PC.NURSE ---
CRITICAL LIPASE REPORTED TO MD PORTILLO. NAME AND CONFIRMED WITH LAB.
[2021-01-19] VITALS: BP 136/78; PULSE 100; RESP 20; TEMP 37.2; O2SAT 97
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
[2021-01-19 04:00] VITALS: BP 144/75; PULSE 78; RESP 20; TEMP 36.6; O2SAT 98
[2021-01-19 05:19] VITALS: BMI 20.7
[2021-01-19 07:19] LABS: Basophils % 0.8 % (0.1-2.0); Eosinophils # 0.1 K/mm3 (0.0-0.4); Eosinophils % 2.4 % (0.1-12.0); Hematocrit 37.8 % (42.0-52.0); Lymphocytes # 1.6 K/mm3 (0.7-4.5); Lymphocytes % 32.1 % (10-50); Mean Corpuscular HGB Conc 32.5 g/dL (31.8-35.4); Mean Corpuscular Hemoglobin 32.4 pg (27.0-31.2); Mean Corpuscular Volume 99.7 fl (80-94); Mean Platelet Volume 8.7 fl (7.4-10.4); Monocytes # 0.4 K/mm3 (0.1-1.0); Monocytes % 8.9 % (1.7-9.3); Neutrophils # 2.8 K/mm3 (1.8-7.8); Neutrophils % 55.8 % (37.0-80.0); Platelet Count 179 K/mm3 (142-424); Red Blood Count 3.79 M/mm3 (4.60-6.20)
[2021-01-19 07:40] LABS: Anion Gap 11.6 mEq/L (5-15); Blood Urea Nitrogen 2 mg/dl (9-20); Calcium 8.1 mg/dl (8.4-10.2); Carbon Dioxide 26 mmol/L (22.0-30.0); Chloride 100 mmol/L (98-107); Creatinine Clearance Estimated 177 mL/min (50-200); Estimated Glomerular Filt Rate 180 ml/min (>60); GFR (African American) 218 ML/MIN (>60); Glucose 122 mg/dl (74-100); Sodium 135 mmol/L (136-145)
[2021-01-19 07:49] LABS: Lipase 765 U/L (23-300); Potassium 2.6 mmoL/L (3.5-5.1)
[2021-01-19 07:52] LABS: Hemoglobin 12.3 g/dL (14.1-18.0)
[2021-01-19 08:00] VITALS: BP 141/94; PULSE 100; RESP 16; TEMP 36.6; O2SAT 98
--- NOTE | 2021-01-19 13:44 | HMH.DCSUM ---
General - General Admission date:: 01/16/21 Discharge date: 01/19/21 HPI HPI: this patient presented to the ed -ates he has not felt well for 2 weeks. He says his kidneys are hurting, he has been vomiting, bad diarrhea, he has infraumbilical midline pain, he is coughing and thinks he has pneumonia, he thinks he is dehydrated. Admits to daily alcohol intake, a pint today. Denies drug use. He is a smoker. He does not have a primary care provider. He is on no prescription medications. pt was found to have elevated etoh level and acute assoc pancreatitis but neg ct abd/pelvis - pt with dec po intake and was admitted for ivf and meds and bowel rest Hospital Course Hospital Course: this patient presented to the ed -ates he has not felt well for 2 weeks. He says his kidneys are hurting, he has been vomiting, bad diarrhea, he has infraumbilical midline pain, he is coughing and thinks he has pneumonia, he thinks he is dehydrated. Admits to daily alcohol intake, a pint today. Denies drug use. He is a smoker. He does not have a primary care provider. He is on no prescription medications. pt was found to have elevated etoh level and acute assoc pancreatitis but neg ct abd/pelvis - pt with dec po intake and was admitted for ivf and meds and bowel rest 01/16/21 CXR: FINDINGS: Lungs: No focal consolidation. Pleural spaces: No pleural effusion. No pneumothorax. Heart/Mediastinum: Unremarkable cardiomediastinal silhouette. Bones/joints: No acute osseous findings. Metallic hardware in the right clavicle. IMPRESSION: No focal consolidation. Electronically signed by Keith Calvert MD 01/16/21 Abd/Pelvis CT: FINDINGS: Lungs: No bibasilar consolidation. Liver: Hepatic steatosis. Gallbladder and bile ducts: No calcified stones. No ductal dilation. Pancreas: No ductal dilation. No peripancreatic inflammatory changes. Spleen: Unremarkable. Adrenal glands: No mass. Kidneys and ureters: Small cyst in the right kidney. No hydronephrosis. Stomach and bowel: Nonobstructive bowel gas pattern. Appendix: No evidence of appendicitis. Intraperitoneal space: No free air. No ascites. Vasculature: Vascular calcifications. Lymph nodes: No enlarged lymph nodes. Urinary bladder: Relatively mild diffuse urinary bladder wall thickening, cystitis is possible. Reproductive: Unremarkable as visualized. Bones/joints: No suspicious osseous lesion. No acute fracture. Scattered degenerative changes. Soft tissues: No suspicious mass. IMPRESSION: 1. Relatively mild diffuse urinary bladder wall thickening, cystitis is possible. 2. Nonobstructive bowel gas pattern. Electronically signed by Keith Calvert MD 01/18/21 Abd /Pelvis CT: FINDINGS: LOWER THORAX: There is a diffuse micronodular pattern involving the lung bases which is similar compared to 01/16/2021. No pleural effusion ABDOMEN & PELVIS: There is mild fatty liver infiltration. No focal liver lesion apparent. The spleen and adrenal glands are unremarkable. No obvious pancreatic mass. No evidence of pancreatitis. The gallbladder is contracted. Unremarkable appearing adrenal glands. No renal or ureteral calculi. There is a slightly hyperdense nodule projecting off the lower pole of the right kidney anteriorly at 11 mm. This nodule is hyperdense measuring 47 Hounsfield units making this an indeterminate nodule. There are few scattered small retroperitoneal lymph nodes. No intestinal obstruction or free air. No evidence of appendicitis. There is mild gaseous distention of the colon. Multiple unopacified bowel loops in the abdomen or pelvis which could obscure or mimic pathology. If symptoms persist, consider repeat exam with IV and oral contrast. There is mild thickening of the urinary bladder wall. No pelvic mass or abnormal fluid collection. Prostate is slightly prominent at 4.3 cm. There is grade 1 spondylitic spondylolisthesis of
[2021-01-19 14:23] LABS: Chloride 98 mmol/L (98-107); Potassium 3.7 mmoL/L (3.5-5.1); Sodium 137 mmol/L (136-145)
[2021-01-19 14:26] LABS: Anion Gap 15.7 mEq/L (5-15); Blood Urea Nitrogen 3 mg/dl (9-20); Calcium 8.5 mg/dl (8.4-10.2); Carbon Dioxide 27 mmol/L (22.0-30.0); Creatinine Clearance Estimated 177 mL/min (50-200); Estimated Glomerular Filt Rate 180 ml/min (>60); GFR (African American) 218 ML/MIN (>60); Glucose 155 mg/dl (74-100)
--- NOTE | 2021-01-19 14:50 | PC.NURSE ---
pt Chris with third and final run of potassium IV almost complete, will finish and remove IV, report called to [facility] where pt will be admitted upon discharge, pt's family will transport pt, discharge instructions complete and pt verbalized understanding, medications sent to [facility] and pt and family had no questions pertaining to medications or discharge at this time
== END 2021-01-19 15:25 | disposition home or self-care (01) | DRG 439 ==
LOC: ER 01-16 02:01 → 2ND 01-16 02:41
PROVIDERS: Nurse Practitioner Family; Admitting Provider Emergency Medicine; Emergency Provider Emergency Medicine; Visit Provider Emergency Medicine
DX: A04.72 Enterocolitis due to Clostridium difficile, not specified as recurrent; K85.20 Alcohol induced acute pancreatitis without necrosis or infection; Z20.822 Contact with and (suspected) exposure to COVID-19; F10.229 Alcohol dependence with intoxication, unspecified; F41.9 Anxiety disorder, unspecified; F17.210 Nicotine dependence, cigarettes, uncomplicated
CPT/HCPCS: 36415; 71046; 74176; 74177; 80048; 80053; 80305; 81001; 83690; 83735; 84100; 84484; 85007; 85025; 85610; 85730; 87506; 93005; 96365; 96375; 99284; C9803; J2405; U0003; U0005

== ENCOUNTER → 2021-01-26 13:49 | Outpatient (CLI) | payer OTHER, SELFPAY ==
[2021-01-26 15:15] LABS: Lipase 651 U/L (23-300)
== END ==
PROVIDERS: Visit Provider Family Medicine
DX: K85.20 Alcohol induced acute pancreatitis without necrosis or infection (principal)
CPT/HCPCS: 83690

== ENCOUNTER → 2021-05-11 12:41 | Outpatient (CLI) | payer OTHER, SELFPAY | PROVIDERS: PCP Family Medicine; Visit Provider Nurse Practitioner | DX: U07.1 COVID-19 (principal) | CPT/HCPCS: C9803; U0003; U0005 ==

== ENCOUNTER 2022-01-01 17:46 | Emergency (ER) | payer OTHER, SELFPAY ==
[2022-01-01 17:47] VITALS: BP 129/89; PULSE 92; RESP 16; TEMP 36.4; O2SAT 92; BMI 21.5
--- NOTE | 2022-01-01 18:04 | HMH.EDGENADL ---
Discharge Plan Disposition Patient Disposition: Left Against Medical Advice Condition: Fair Chief Complaint: Abdominal Pain Prescriptions Prescriptions: No Action naltrexone 50 mg tablet 50 mg PO DAILY Qty: 7 0RF Vivitrol 380 mg suspension,extended rel recon 380 mg IM QMONTH Qty: 1 10RF folic acid 1 mg tablet 1 mg PO DAILY Qty: 90 3RF buspirone 5 mg tablet 5 mg PO TID PRN (Reason: anxiety) Qty: 270 3RF Rx Instructions: PO TID for anxiety trazodone 100 mg tablet 100 mg PO DAILY Qty: 30 2RF methylprednisolone [Medrol (Rian)] 4 mg tablets,dose pack See Rx Instructions PO PER PKG DIR Qty: 21 0RF Rx Instructions: PO PER PKG DIR amitriptyline 50 mg tablet 50 mg PO DAILY PRN (Reason: sleep) Qty: 90 3RF pantoprazole 40 mg tablet,delayed release (DR/EC) See Rx Instructions .ROUTE .COMPLEX Qty: 30 2RF Dose Instruction: TAKE 1 TABLET BY MOUTH AT BEDTIME Rx Instructions: TAKE 1 TABLET BY MOUTH AT BEDTIME metaxalone [Skelaxin] 800 mg tablet 800 mg PO TID PRN (Reason: muscle pain) Qty: 90 6RF Referrals Follow up/Referrals: Christiano Barakat MD [Primary Care Provider] - See instructions Clinical Impressions Clinical Impression: Pancreatitis Instructions Patient Instructions: DI for Acute Abdominal Pain, Acute Pancreatitis Print Language Print Language: Lithuanian Discharge ED Provider: Leandro Blankenship General Adult HPI General Chief complaint: Abdominal Pain Stated complaint: Vomiting,fever Time Seen by Provider: 01/01/22 18:05 History of Present Illness HPI narrative: 46-year-old male with past medical history including severe alcohol abuse, alcoholic pancreatitis. He presents with complaint of epigastric pain, nausea, vomiting, diarrhea ongoing for about a week and worsening. Significant other in the room reports he drinks about 30 beers per day. He denies any fevers, but reports recently he has noticed abnormal bruising, has numerous ecchymotic areas over the legs anteriorly and torso without known trauma precipitating these. He denies any bleeding of the gums, epistaxis, denies any known coagulopathy or liver disease. Related Data Previous Rx's Medication Instructions Recorded naltrexone 50 mg tablet 50 mg PO DAILY #7 tabs 01/26/21 naltrexone microspheres 380 mg 380 mg IM QMONTH #1 ea 01/26/21 intramuscular suspension,extended release (Vivitrol) trazodone 100 mg tablet 100 mg PO DAILY #30 tabs 01/31/21 buspirone 5 mg tablet 5 mg PO TID PRN anxiety #270 tabs 02/27/21 folic acid 1 mg tablet 1 mg PO DAILY #90 tabs 02/27/21 pantoprazole 40 mg tablet,delayed See Rx Instructions .Route 03/15/21 release .COMPLEX #30 tabs amitriptyline 50 mg tablet 50 mg PO DAILY PRN sleep #90 tabs 04/03/21 methylprednisolone 4 mg tablets in See Rx Instructions PO PER PKG DIR 04/03/21 a dose pack (Medrol (Rian)) #21 tabs metaxalone 800 mg tablet (Skelaxin) 800 mg PO TID PRN muscle pain #90 06/08/21 tabs Allergies Allergy/AdvReac Type Severity Reaction Status Date / Time Tetanus Vaccines and Toxoid Allergy Verified 04/03/21 11:18 [facility] Social History Smoking Status: Current every day smoker tobacco type: cigarettes packs per day: 1 second hand exposure: Yes alcohol intake: current current occupational status: unemployed Travel in the last 8 weeks: None household members: significant other and children housing: house caffeine: No ROS Obtained: Yes Systems reviewed as appropriate & no additional complaints except as documented Constitutional Constitutional: Reports fatigue Eyes Eyes: Reports system reviewed and no additional complaints, except as documented ENT Ears, Nose, Mouth, and Throat: Reports system reviewed and no additional complaints, except as documented Cardiovascular Cardiovascular: Reports system reviewed and no additional complaints, except as documented Res
[2022-01-01 18:51] LABS: Basophils # 0.1 K/mm3 (0-0.2); Basophils % 0.7 % (0.1-2.0); Eosinophils # 0.1 K/mm3 (0.0-0.4); Eosinophils % 0.8 % (0.1-12.0); Hematocrit 44.9 % (42.0-52.0); Hemoglobin 14.5 g/dL (14.1-18.0); Lymphocytes % 22.8 % (10-50); Mean Corpuscular HGB Conc 32.3 g/dL (31.8-35.4); Mean Corpuscular Hemoglobin 30.7 pg (27.0-31.2); Mean Corpuscular Volume 95.1 fl (80-94); Mean Platelet Volume 7.1 fl (7.4-10.4); Monocytes # 0.6 K/mm3 (0.1-1.0); Monocytes % 6.5 % (1.7-9.3); Neutrophils # 5.9 K/mm3 (1.8-7.8); Neutrophils % 69.1 % (37.0-80.0); Platelet Count 315 K/mm3 (142-424); Red Blood Count 4.72 M/mm3 (4.60-6.20); Red Cell Distribution Width 13.9 % (11.5-17.5); White Blood Count 8.6 K/mm3 (4.8-10.8)
[2022-01-01 18:56] LABS: Alanine Aminotransferase 27 U/L (12-78); Albumin/Globulin Ratio 1.5 (1.1-1.8); Alkaline Phosphatase 77 U/L (38-126); Anion Gap 13.5 mEq/L (5-15); Aspartate Amino Transferase 70 U/L (17-59); Blood Urea Nitrogen 3 mg/dl (9-20); Calcium 8.3 mg/dl (8.4-10.2); Carbon Dioxide 24 mmol/L (22.0-30.0); Chloride 99 mmol/L (98-107); Creatinine Clearance Estimated 135 mL/min (50-200); Estimated Glomerular Filt Rate 121 ml/min (>60); GFR (African American) 147 ML/MIN (>60); Globulin 2.7 g/dL (1.3-3.2); Glucose 138 mg/dl (74-100); Lipase 443 U/L (23-300); Potassium 3.5 mmoL/L (3.5-5.1); Sodium 133 mmol/L (136-145); Total Protein,Serum 6.7 g/dl (6.3-8.2)
[2022-01-01 18:57] LABS: INR 0.85 (0.9-1.1); Prothrombin Time 9.3 seconds (10.1-12.5)
[2022-01-01 18:58] LABS: Bilirubin,Total 0.1 mg/dl (0.2-1.3)
[2022-01-01 19:12] VITALS: BP 118/91; PULSE 83; RESP 18; TEMP 36.6; O2SAT 94
== END 2022-01-01 19:16 | disposition left against medical advice (07) ==
PROVIDERS: Emergency Provider Emergency Medicine; PCP Family Medicine
DX: K85.90 Acute pancreatitis without necrosis or infection, unspecified (principal); Z72.0 Tobacco use
CPT/HCPCS: 80053; 83690; 85025; 85610; 96365; 96375; 99284; J2405

== ENCOUNTER → 2022-01-11 13:12 | Outpatient (CLI) | payer OTHER, SELFPAY ==
--- NOTE | 2022-01-11 13:16 | US_ITS ---
FINAL REPORT CLINICAL HISTORY: .eval area seen on rt kidney COMPARISON: 01/18/2021 FINDINGS: FINDINGS: Sonographic images of the kidneys were obtained. Limited images of the liver are unremarkable. The right kidney measures 10.3 cm in length. There is no evidence of hydronephrosis. There is a 1.4 cm hypoechoic mass which likely represents a cyst. The left kidney measures 12.2 cm in length. There is no evidence of hydronephrosis. No mass is identified. IMPRESSION: Probable right renal cyst. Reviewed, Interpreted and Dictated by Brian Olson III, MD Transcribed by Rehana Gavin Authenticated and [facility]
--- NOTE | 2022-01-11 13:16 | CT_ITS ---
FINAL REPORT TECHNIQUE: Axial CT images of the abdomen were obtained without contrast. Coronal reformatted images were also obtained.This study was performed with techniques to keep radiation doses as low as reasonably achievable (ALARA). Individualized dose reduction techniques using automated exposure control or adjustment of mA and/or kV according to the patient''s size were employed. CLINICAL HISTORY: pancreatitis COMPARISON: 01/18/2021 FINDINGS: The lung bases are clear. The liver has an unremarkable appearance, without evidence of mass. The gallbladder is partially collapsed. There is no evidence of biliary ductal dilatation. The pancreas has an unremarkable, unenhanced appearance. The spleen size is within normal limits. There is no evidence of renal stone or hydronephrosis. There is 11 mm mass in the anterior right kidney which does not appear to be a simple cyst. This measured 10 mm on the previous exam. There is no evidence of adenopathy. No abnormal fluid collection is seen. There is mild wall thickening of the hepatic flexure of the colon which is nonspecific and may represent mild colitis. There are vascular calcifications. There are bilateral pars defects with mild anterolisthesis of L5 on S1. IMPRESSION: Unremarkable, unenhanced appearance to the pancreas. Mild wall thickening of the hepatic flexure of the colon may represent mild colitis. 11 mm mass in the anterior right kidney which does not appear to be a simple cyst. Consider follow-up renal mass protocol CT in 6 months. Reviewed, Interpreted and Dictated by Brian Olson III, MD Transcribed by Rehana Gavin Authenticated and [facility]
== END ==
PROVIDERS: PCP Family Medicine; Visit Provider Family Medicine
DX: K85.90 Acute pancreatitis without necrosis or infection, unspecified (principal); N28.9 Disorder of kidney and ureter, unspecified
CPT/HCPCS: 74150; 76770

== ENCOUNTER → 2022-02-09 16:15 | Outpatient (CLI) | payer OTHER, SELFPAY ==
[2022-02-09 18:47] LABS: Lipase 32 U/L (23-300)
== END ==
PROVIDERS: PCP Family Medicine; Visit Provider Family Medicine
DX: K85.20 Alcohol induced acute pancreatitis without necrosis or infection (principal)
CPT/HCPCS: 83690

== ENCOUNTER → 2022-03-30 16:32 | Outpatient (CLI) | payer OTHER, SELFPAY ==
[2022-03-30 15:31] LABS: Basophils # 0.1 K/mm3 (0-0.2); Basophils % 0.7 % (0.1-2.0); Eosinophils # 0.4 K/mm3 (0.0-0.4); Eosinophils % 4.3 % (0.1-12.0); Hematocrit 44.7 % (42.0-52.0); Lymphocytes # 2.5 K/mm3 (0.7-4.5); Lymphocytes % 27.8 % (10-50); Mean Corpuscular HGB Conc 31.3 g/dL (31.8-35.4); Mean Corpuscular Hemoglobin 30.6 pg (27.0-31.2); Mean Corpuscular Volume 97.5 fl (80-94); Monocytes # 0.6 K/mm3 (0.1-1.0); Monocytes % 7.2 % (1.7-9.3); Neutrophils # 5.3 K/mm3 (1.8-7.8); Platelet Count 413 K/mm3 (142-424); Red Blood Count 4.58 M/mm3 (4.60-6.20); Red Cell Distribution Width 13.5 % (11.5-17.5); White Blood Count 8.8 K/mm3 (4.8-10.8)
[2022-03-30 16:24] LABS: Alanine Aminotransferase 22 U/L (12-78); Albumin Level 4.4 g/dl (3.5-5.0); Albumin/Globulin Ratio 1.8 (1.1-1.8); Alkaline Phosphatase 68 U/L (38-126); Amylase 84 U/L (30-110); Anion Gap 10.7 mEq/L (5-15); Aspartate Amino Transferase 35 U/L (17-59); Bilirubin,Total 0.5 mg/dl (0.2-1.3); Blood Urea Nitrogen 11 mg/dl (9-20); Calcium 9.4 mg/dl (8.4-10.2); Carbon Dioxide 26 mmol/L (22.0-30.0); Chloride 107 mmol/L (98-107); Estimated Glomerular Filt Rate 80 ml/min (>60); GFR (African American) 97 ML/MIN (>60); Globulin 2.4 g/dL (1.3-3.2); Glucose 79 mg/dl (74-100); Lipase 44 U/L (23-300); Potassium 3.7 mmoL/L (3.5-5.1); Sodium 140 mmol/L (136-145); Total Protein,Serum 6.8 g/dl (6.3-8.2)
== END ==
PROVIDERS: PCP Family Medicine; Visit Provider Family Medicine
DX: F10.20 Alcohol dependence, uncomplicated (principal)
CPT/HCPCS: 80053; 82150; 83690; 85025